=== PATIENT | male | born 1985 | race Caucasian/White ===

== ENCOUNTER 2018-05-10 05:58 | Day surgery (SDC) | payer OTHER ==
--- NOTE | 2018-05-09 20:01 | Pre-Procedure Note/Attestation ---
Pre-Procedure Note/Attestation Complete Prior to Procedure Planned Procedure: left Procedure Narrative: Microsuspension laryngoscopy Excision of left vocal cord tumor Indications for Procedure Pre-Operative Diagnosis: Left vocal cord tumor Attestation I attest that I discussed the nature of the procedure; its benefits; risks and complications; and alternatives (and the risks and benefits of such alternatives ), prior to the procedure, with the patient (or the patient's legal branch sales and service representative). I attest that, if there was a reasonable possibility of needing a blood transfusion, the patient (or the patient's legal branch sales and service representative) was given the [facility] standardized written summary, pursuant to the Toni [place] Blood Safety Act ([place] Health and Safety Code # 1645, as amended). I attest that I re-evaluated the patient just prior to the surgery and that there has been no change in the patient's H&P. No need for labs, EKG or CXR in this otherwise healthy 32 year old. Merrick Burrows MD May 09, 2018 20:01
--- NOTE | 2018-05-09 20:02 | Brief Operative Note ---
Immediate Post Operative Note Operative Note Pre-op Diagnosis: Left vocal cord tumor Procedure: Microsuspension laryngoscopy Excision of left vocal cord tumor Post-op Diagnosis: same as pre-op Surgeon: Merrick Burrows Telesales Consultant: none Additional Surgeons: none Anesthesiologist: Dr. Dempsey Anesthesia: general Specimen: yes - Left vocal cord tumor Complications: none Condition: stable Fluids: 5LR Estimated Blood Loss: minimal Drains: none Packing: none Implant(s) used?: No Merrick Burrows MD May 09, 2018 20:02
--- NOTE | 2018-05-09 20:03 | Discharge Instructions ---
Discharge Instructions Discharge Instructions Follow up with: end of this week-he has appt. already Diet: regular Resume Normal Activity?: No Activity: light activity Pneumonia Vaccine: pt refused vaccine Influenza Vaccine (Nov to Apr): pt refused vaccine Follow Up Orders no yelling or whispering Return to Work/School on: May 23, 2018 For Surgical Patients May shower: Yes For Congestive Heart Failure Reminder Report to your physician any weight gain of 5 pounds or more in one week. Merrick Burrows MD May 09, 2018 20:03
--- NOTE | 2018-05-09 20:12 | History & Physical ---
History of Present Illness General Date patient seen: May 03, 2018 Time patient seen: 12:00 Reason for Hospitalization: out pt surgery of vocal cords-tumor left VC Present Illness HPI Voice change a few weeks ago-no response to treatment. Allergies: Coded Allergies: No Known Allergies (Unverified , 05/09/18) Medication History No Active Prescriptions or Reported Meds Patient History History Provided By: Patient Healthcare decision maker Resuscitation status Full code Advanced Directive on File Unknown Patient History Narrative Patient Review of Systems Review of Symptoms General ROS: no weight loss or fever Psychological ROS: no depression or mood changes, no memory loss Ophthalmic ROS: no visual changes or eye irritation ENT ROS: no nasal congestion, hearing loss, dizziness-LOSS OF VOICE LAST FEW WEEKS Allergy and Immunology ROS: no allergic symptoms or urticaria Hematological and Lymphatic ROS: no swollen glands, unusual bleeding or bruising Endocrine ROS: no polyuria, polydipsia, weight changes, temperature intolerance Respiratory ROS: no cough, shortness of breath, or wheezing Cardiovascular ROS: no chest pain or dyspnea on exertion Gastrointestinal ROS: denies abdominal pain, bright red blood in stool. Musculoskeletal ROS: no myalgias or arthralgias Neurological ROS: no TIA or stroke symptoms Dermatological ROS: no new or changing skin lesions, rashes or pruritis Physical Exam Physical Exam General appearance: alert, cooperative, no distress, appears stated age Head: Normocephalic, without obvious abnormality, atraumatic Eyes: conjunctivae/corneas clear. PERRL, EOM's intact. Fundi benign Throat: Lips, mucosa, and tongue normal. Teeth and gums normal Neck: supple, symmetrical, trachea midline, no adenopathy, thyroid: not enlarged, symmetric, no tenderness/mass/nodules, no carotid bruit and no JVD Lungs: clear to auscultation bilaterally Heart: regular rate and rhythm, S1, S2 normal, no murmur, click, rub or gallop Abdomen: soft, non-tender. Bowel sounds normal. No masses, no organomegaly Extremities: extremities normal, atraumatic, no cyanosis or edema Pulses: 2+ and symmetric Skin: Skin color, texture, turgor normal. No rashes or lesions Neurologic: Grossly normal FIBEROPTIC LARYNGOSCOPY: TUMOR LEFT VC WELL NOTED ON MRI. b) 120/80, hr 70, rr 13 NONE-not indicted in otherwise healthy 32 year old male. Height (Feet): 5 Height (Inches): 4 Weight (Pounds): 160 Medications omeprazole Objective Narrative growth non left vocal cord Assessment/Plan Status: stable Status Narrative VOice issues secondary to growth on left vocal cord-pt is a light smoker 1/2 pack per day. Assessment/Plan Left VC tumor for excision as an outpt. MIPS Hospital declaration Disposition: Once the patient is stable to leave the hospital, I anticipate the patient will likely be discharged to the following environment:home 2 hours post surgery Estimated discharge date: I spent 70 minutes on this patient's case, and 70 minutes was dedicated to counseling and/or care coordination. MIPS ([employer]cent[employer] Payment System) Applicable CPT: 76490, 52561 CHECK ALL THAT ARE MET: Measure #47 Advance care plan or surrogate decision maker documented in the medical record. Measure #130 The provider has documented, updated, or reviewed the patients current medication list and has documented it in the patients note. MEDICAL COMPLEXITY High complexity medical decision making (need 2/3 categories) Problem - need 4 points Acute/new problem with new plan for workup (4 points, 1 max) Acute/new problem without additional workup (3 points, 1 max) Unstable chronic problem actively being managed (2 point each, 2 max) Stable chronic problem actively being managed (1 point each, 2 max) Self-limited/transient process (constipation, muscle ache, etc) (1 point each , 2 max) Data - need 4 points Reviewed labs/imaging studies (1 points, 2 max) Independent review of imaging (EKG, xrays, etc) (2 points, 2 max) Discussed case with consult/other MD/RN (2 points, 2 max) High Risk - qualify if have one of the following: Severe exacerbation of acute problem, acute mental status change, IV narcotics , monitoring drug levels (vancomycin, INR, tacrolimus etc) Merrick Burrows MD May 09, 2018 20:12
[2018-05-10] VITALS (12 sets, daily range): BP systolic 107–129; BP diastolic 57–84
[~2018-05-10] VITALS: Ht 188 cm; Wt 72.6 kg
[2018-05-10] MEDS ORDERED: OMEPRAZOLE40 M1 ORAL (06:33)
[2018-05-10] MEDS ORDERED: Midazolam 2mg/2ml Inj ONE (06:56)
[2018-05-10] MEDS ORDERED: fentaNYL 100 mcg/2 mL IV ONE (06:56)
[2018-05-10] MEDS ORDERED: Neostigmine 1mg/ml 10ml Inj ONE (06:57)
[2018-05-10] MEDS ORDERED: Glycopyrrolate 0.2mg/ml 1ml Vial ONE (06:57)
[2018-05-10] MEDS ORDERED: Lidocaine 1% MPF 10mg/ml 5ml ONE (06:57)
[2018-05-10] MEDS ORDERED: Propofol 200mg/20ml IV ONE ×2 (06:57→07:02)
[2018-05-10] MEDS ORDERED: Zemuron 50mg/5ml Inj IV ONE (07:11)
[2018-05-10] MEDS ORDERED: Succinylcholine 20mg/ml 10ml vial ONE (07:11)
[2018-05-10] MEDS ORDERED: ceFAZolin sod 1 GM in NS 55 ML IVPB ONE (07:15)
[2018-05-10] MEDS ORDERED: Sterile Water Irrig 1000ml IRRIG ONE (07:30)
[2018-05-10] MEDS ORDERED: NS Irrig 1000ml IRRIG ONE (07:31)
[2018-05-10] MEDS ORDERED: LR 1000ml 1,000 ML IVLG SCH (08:00)
[2018-05-10] MEDS ORDERED: DiphenhydrAMINE 50mg/ml Inj IVP PRN (08:00)
[2018-05-10] MEDS ORDERED: Meperidine 50mg/ml Inj(FOR RIGORS ONLY) IV PRN (08:00)
[2018-05-10] MEDS ORDERED: Metoclopramide 10mg/2ml Inj IVP PRN ×2 (08:00→14:01)
--- NOTE | 2018-05-10 08:00 | Anethesia Preoperative Eval ---
Anesthesia Pre-op PMH/ROS General Date of Evaluation: May 10, 2018 Time of Evaluation: 07:18 Anesthesiologist: Adele ASA Score: ASA 2 Mallampati Score Class I : Soft palate, uvula, fauces, pillars visible Class II: Soft palate, uvula, fauces visible Class III: Soft palate, base of uvula visible Class IV: Only hard plate visible Mallampati Classification: Class II Surgeon: Markos Diagnosis: Vocal cord mass Surgical Procedure: Microlaryngoscopy Anesthesia History: none Social History: current smoker Family History: no anesthesia problems Allergies: Coded Allergies: No Known Allergies (Unverified , 05/09/18) Medications: see eMAR Patient NPO?: Yes Past Medical History Cardiovascular: Denies: HTN, CAD, MT, valve dz, arrhythmia, other Pulmonary: Denies: asthma, COPD, SO, other Gastrointestinal/Genitourinary: Reports: GERD; Denies: CRI, ESRD, other Neurologic/Psychiatric: Denies: dementia, CVA, depression/anxiety, TIA, other Endocrine: Denies: DM, hypothyroidism, steroids, other HEENT: Denies: cataract (L), cataract (R), glaucoma, [place] (L), [place] (R), other Hematology/Immune: Denies: anemia, DVT, bleeding disorder, other Musculoskeletal/Integumentary: Denies: OA, RA, DJD, DDD, edema, other PMH Narrative: as above PSxH Narrative: Septoplasty Anesthesia Pre-op Phys. Exam Physician Exam Last Vital Signs Date Time Temp Pulse Resp B/P (MAP) Pulse Ox O2 Delivery O2 Flow Rate FiO2 05/10/18 06:41 97.4 66 20 129/84 99 Room Air Constitutional: NAD Neurologic: CN 2-12 intact Cardiovascular: RRR, no M/R/G Respiratory: CTA Gastrointestinal: other Airway Exam Mallampati Score: Class II MO: full Neck: flexible ROM: full Teeth: intact Dentures: no upper, no lower Anesthesia Pre-op A/P Risk Assessment & Plan Assessment: ASA 2 Plan: GA wth ETT Status Change Before Surgery: No Pre-Antibiotics Drug: Ancef 1gr Given Within 1 Hr of Incision: Yes Time Given: 07:50 Michael Angulo MD May 10, 2018 08:00
--- NOTE | 2018-05-10 08:36 | Immediate Post-Op Evaluation ---
Immediate Post-Op Evalulation Immediate Post-Op Evalulation Procedure: Microlaryngoscopy excision of vocal cord tumor Date of Evaluation: May 10, 2018 Time of Evaluation: 08:35 IV Fluids: 800 Blood Products: none Estimated Blood Loss: min Urinary Output: none Blood Pressure Systolic: 107 Blood Pressure Diastolic: 68 Pulse Rate: 76 Respiratory Rate: 20 O2 Sat by Pulse Oximetry: 99 Temperature (Fahrenheit): 97.6 Pain Score (1-10): 1 Nausea: No Vomiting: No Complications none Patient Status: reacts, patent, extubated, none Hydration Status: adequate Michael Angulo MD May 10, 2018 08:36
--- NOTE | 2018-05-10 10:17 | 48 Hour Post Anesthesia Eval ---
Post Anesthesia Evaluation Procedure: Microlaryngoscopy excision of vocal cord tumor Date of Evaluation: May 10, 2018 Time of Evaluation: 10:16 Blood Pressure Systolic: 115 0: 68 Pulse Rate: 74 Respiratory Rate: 20 Temperature (Fahrenheit): 97.8 O2 Sat by Pulse Oximetry: 98 Airway: patent Nausea: No Vomiting: No Pain Intensity: 2 Hydration Status: adequate Cardiopulmonary Status: stable Mental Status/LOC: patient returned to baseline Follow-up Care/Observations: n/a Post-Anesthesia Complications: none Follow-up care needed: ready to discharge Michael Angulo MD May 10, 2018 10:17
[2018-05-10] MEDS ORDERED: HYDROmorphone 1mg/ml Carpuject SUBQ PRN (14:01)
[2018-05-10] MEDS ORDERED: HYDROcodone/Acetamin 5/325 tab ORAL PRN (14:01)
--- NOTE | 2018-05-10 17:45 | Operative Note - Dictated ---
DATE OF OPERATION: 05/10/2018 SURGEON: Merrick Burrows M.D. PETROLEUM ANALYST: None. ANESTHESIOLOGIST: Dr. Ventura. ANESTHESIA: Oral endotracheal anesthesia. INDICATION FOR SURGERY: Left vocal cord polyp/tumor. PREOPERATIVE DIAGNOSIS: Left vocal cord polyp/tumor. POSTOPERATIVE DIAGNOSIS: Left vocal cord polyp/tumor. FINDINGS: Left anterior third true vocal fold cyst-like polyp. PROCEDURE: 1. Microsuspension laryngoscopy. 2. Excision of left vocal cord tumor/polyp. TECHNIQUE: The patient was prepped and draped in the usual manner. A small #1 size-down endotracheal tube was placed to facilitate room around the larynx. Time-out was performed. All agreed as to the procedure and equipment needed. Mouth guard was placed on the upper teeth and a Dedo scope was placed in suspension, visualizing the vocal cords well. Microscope was brought into position. With a left cusp, I pulled the polyp medially and then with an angled scissors cut anteriorly and posteriorly at the polyp itself and divided and spread at the base. This was then removed. It came out in two pieces. I then proceeded to hold a small piece of Telfa on it for about a minute and a half. It was then removed. The area was suctioned dry. ESTIMATED BLOOD LOSS: 1 mL. COMPLICATIONS: None. DRAINS: None. It did take the patient about half hour to wake up. He started breathing on his own after anesthesia, but I did see him in recovery room about 40 minutes after conclusion of the procedure and about 10 minutes after extubation and his voice was better. Merrick Burrows M.D. DR: ROSA JOB#: [id number] CC:
== END 2018-05-10 10:20 | disposition home or self-care (01) ==
LOC: SUR 05:58
DX: J38.1 Polyp of vocal cord and larynx (principal); K21.9 Gastro-esophageal reflux disease without esophagitis; F17.200 Nicotine dependence, unspecified, uncomplicated
CPT/HCPCS: 31578; J0330; J0690; J2250; J2405; J2704; J2710; J3010; 94003; 94150